=== PATIENT | female | born 1985 | race Hispanic/Latino ===

== ENCOUNTER → 2018-11-06 | Outpatient (REF) | payer OTHER ==
[~2018-11-06] MED LIST: BIOT1CAP2 PO; ETHINYL ESTRADIOL PO; MELA1LIQ2 PO; MULTCAP PO; NORGESTIMATE PO; OCRE300I IV; SUPECAP7 PO; THERCAP7 PO; VITA100T59 PO
[2018-11-06 13:42] LABS: BASO % 0.6 % (0.0-1.0); EOS # 0.2 10^3/uL (0.0-0.50); EOS % 3.2 % (0.0-3.0); HEMATOCRIT 39.4 % (36.0-47.0); HEMOGLOBIN 13.2 g/dl (12.0-15.5); LYMPH % 16.7 % (24.0-44.0); MEAN CORPUSCULAR HEMOGLOBIN 32.4 pg (27.0-33.0); MEAN CORPUSCULAR HGB CONC 33.5 g/dl (32.0-36.5); MEAN CORPUSCULAR VOLUME 96.8 fl (80.0-96.0); MONO # 0.3 10^3/uL (0.0-0.8); MONO % 4.5 % (0.0-5.0); NEUTROPHILS # 4.7 10^3/uL (1.8-7.7); NEUTROPHILS % 74.7 % (36.0-66.0); PLATELET COUNT, AUTOMATED 214 10^3/uL (150-450); RED BLOOD COUNT 4.07 10^6/uL (4.00-5.40); WHITE BLOOD COUNT 6.2 10^3/uL (4.0-10.0)
[2018-11-06 14:23] LABS: ALBUMIN 3.7 GM/DL (3.2-5.2); ALT/SGPT 30 U/L (12-78); BILIRUBIN,TOTAL 0.3 MG/DL (0.2-1.0); BLOOD UREA NITROGEN 10 MG/DL (7-18); CALCIUM LEVEL 8.7 MG/DL (8.5-10.1); CARBON DIOXIDE LEVEL 25 MEQ/L (21-32); CHLORIDE LEVEL 107 MEQ/L (98-107); CREATININE FOR GFR 0.77 MG/DL (0.55-1.30); GLOMERULAR FILTRATION RATE > 60.0 (>60); GLUCOSE, FASTING 93 MG/DL (70-100); POTASSIUM SERUM 3.8 MEQ/L (3.5-5.1); SODIUM LEVEL 141 MEQ/L (136-145); TOTAL 25(OH) VITAMIN D 34.8 NG/ML (30.0-100.0); TOTAL PROTEIN 7.1 GM/DL (6.4-8.2)
== END ==
LOC: M LABNEURO 10:33
PROVIDERS: ATTEND Psychiatry & Neurology Neurology
DX: G35 Multiple sclerosis (principal); E55.9 Vitamin D deficiency, unspecified

== ENCOUNTER 2018-11-12 08:10 | Outpatient (CLI) | payer OTHER ==
[2018-11-12] VITALS (8 sets, daily range): BP systolic 96–119; BP diastolic 46–66
[~2018-11-12] VITALS: Ht 154.9 cm; Wt 67.2 kg
[2018-11-12] MEDS ORDERED: diphenhydrAMINE 25 MG CAP PO ONE (08:30)
[2018-11-12] MEDS ORDERED: methylPREDNISolone INJ 125 MG/2 ML VIAL (J2930) IV ONE (08:30)
[2018-11-12] MEDS ORDERED: ACETAMINOPHEN TAB 650MG DOSE (2X325MG) PO ONE (08:30)
[2018-11-12] MEDS ORDERED: OCRELIZUMAB 600 MG in NS 500 ML IV ONE (08:30)
[2018-11-12] MEDS ORDERED: 0.22 MICRON FILTER (METHACHOLINE/OCREVUS) XX ONE (08:30)
[2018-11-12] MEDS ORDERED: VITA100T59 PO (08:33)
[2018-11-12] MEDS ORDERED: BIOT1CAP2 PO (08:33)
[2018-11-12] MEDS ORDERED: MULTCAP PO (08:35)
[2018-11-12] MEDS ORDERED: SUPECAP7 PO (08:38)
[2018-11-12] MEDS ORDERED: THERCAP7 PO (08:38)
[2018-11-12] MEDS ORDERED: NORGESTIMATE PO (08:39)
[2018-11-12] MEDS ORDERED: ETHINYL ESTRADIOL PO (08:39)
[2018-11-12] MEDS ORDERED: MELA1LIQ2 PO (08:40)
[2018-11-12] MEDS ORDERED: OCRE300I IV (08:41)
== END 2018-11-12 14:15 | disposition home or self-care (01) ==
LOC: M INFU 08:10
PROVIDERS: ATTEND Psychiatry & Neurology Neurology
DX: G35 Multiple sclerosis (principal)
CPT/HCPCS: 96365; 96366; 96375; J2350; J2930

== ENCOUNTER → 2018-11-19 | Outpatient (CLI) | payer OTHER ==
--- NOTE | 2018-11-21 11:59 | REP ---
DIGITAL DIAGNOSTIC BILATERAL MAMMOGRAPHY WITH CAD: HISTORY: 32-year-old woman status post benign lumpectomy, cystic breast disease. Currently on a multiple sclerosis therapy which increases risk of breast cancer. Family history is not positive for breast cancer. Comparison mammography has been retrieved from [facility] dated August 18, 2015. MAMMOGRAPHIC FINDINGS: There is a marker clip from previous needle biopsy in the upper outer quadrant of the right breast. There is a surgical clip in the upper outer quadrant left breast from previous excisional biopsy. There is some post biopsy fibrosis in the upper outer quadrant of the left breast. This is less prominent than on the 08/18/2015 prior study. Heterogeneously dense breast parenchyma is observed as before although there has been some involutional change. No neodensity is seen. No microcalcification is observed. No architectural distortion is seen. IMPRESSION: BIRADS 2: BI-RADS/ACR category 2 mammogram. Benign Findings. Repeat screening mammography suggested in 1 year. This mammogram was interpreted with the aid of an FDA-approved computer-aided detection system. The patient states she had a clinical breast exam in April 2018. The patient letter being requested is M1. Electronically Signed by Carlos Martinez MD 11/21/2018 12:09 P
== END ==
LOC: M RAD 14:21
PROVIDERS: ATTEND Psychiatry & Neurology Neurology
DX: Z12.31 Encounter for screening mammogram for malignant neoplasm of breast (principal); G35 Multiple sclerosis

== ENCOUNTER → 2019-04-16 | Outpatient (REF) | payer OTHER | LOC: M LABNEURO 17:50 | PROVIDERS: ATTEND Psychiatry & Neurology Neurology | DX: E55.9 Vitamin D deficiency, unspecified (principal) ==

== ENCOUNTER 2019-05-11 07:45 | Outpatient (CLI) | payer OTHER ==
[2019-05-11] VITALS (8 sets, daily range): BP systolic 90–126; BP diastolic 47–68
[~2019-05-11] VITALS: Ht 154.9 cm; Wt 67.2 kg
[2019-05-11] MEDS ORDERED: diphenhydrAMINE 25 MG CAP PO ONE (08:00)
[2019-05-11] MEDS ORDERED: methylPREDNISolone INJ 125 MG/2 ML VIAL (J2930) IV ONE (08:00)
[2019-05-11] MEDS ORDERED: ACETAMINOPHEN TAB 650MG DOSE (2X325MG) PO ONE (08:00)
[2019-05-11] MEDS ORDERED: OCRELIZUMAB 600 MG in NS 500 ML IV ONE (09:00)
== END 2019-05-11 13:15 | disposition home or self-care (01) ==
LOC: M INFU 07:45
PROVIDERS: ATTEND Psychiatry & Neurology Neurology
DX: G35 Multiple sclerosis (principal)
CPT/HCPCS: 96365; 96366; 96375; J2350; J2930

== ENCOUNTER → 2019-05-26 | Outpatient (CLI) | payer OTHER ==
--- NOTE | 2019-05-26 14:22 | REPMRS ---
Patient History The patient states she has not had a clinical breast exam in over a year. No known family history of cancer. Taking hormonal contraceptives for 12 years 6 months. Patient was diagnosed with Multiple Sclerosis 01/2010. Patient states she has had a left breast lumpectomy 12/2015 that was negative Diagnostic Bilateral Mammo: May 26, 2019 - Exam #: [id number] Bilateral CC and MLO view(s) were taken. Technologist: Elizabeth Diaz, Technologist Prior study comparison: November 19, 2018, digital mammo diagnostic bilateral, performed at [facility]. April 14, 2018, bilateral digital woman screen mammo, performed at [facility]. March 15, 2017, bilateral digital woman screen mammo, performed at [facility]. FINDINGS: The breast tissue is heterogeneously dense. This may lower the sensitivity of mammography. There is a surgical clip projecting in the upper outer quadrant of the left breast and the needle biopsy marker clip is seen projecting in the upper outer quadrant of the right breast. These findings are unchanged. There is a moderate amount of heterogeneously dense fibroglandular tissue which is fairly symmetric. There is no interval development of dominant mass, architectural distortion, or grouped microcalcification typical of malignancy. There has been no change in the appearance of the mammogram from the prior studies. Assessment: BI-RADS/ACR category 2 mammogram. Benign Findings. Recommendation Routine screening mammogram of both breasts in 1 year (for women over age 40). This patient's Lifetime Breast Cancer RIsk is estimated at 15.1 %. This mammogram was interpreted with the aid of an FDA-approved computer-aided dectection system. Electronically Signed By: Shorty Martinez MD 05/26/19 [id number]
== END ==
LOC: M WHC 13:44
PROVIDERS: ATTEND Emergency Medicine
DX: Z12.31 Encounter for screening mammogram for malignant neoplasm of breast (principal)

== ENCOUNTER 2019-11-09 08:00 | Outpatient (CLI) | payer OTHER ==
[2019-11-09] MEDS ORDERED: methylPREDNISolone 125MG 2ML VIAL ONE (08:01)
[2019-11-09] MEDS ORDERED: diphenhydrAMINE 25MG CAP ONE (08:01)
[2019-11-09] MEDS ORDERED: OCRELIZUMAB 300MG 10ML (OCREVUS) ONE (08:01)
[2019-11-09] MEDS ORDERED: ACETAMINOPHEN TAB 650MG DOSE (2X325MG) ONE (08:01)
[2019-11-09] MEDS ORDERED: methylPREDNISolone 125MG 2ML VIAL As Ordered ONE (08:04)
[2019-11-09] MEDS ORDERED: diphenhydrAMINE 25MG CAP As Ordered ONE (08:04)
[2019-11-09] MEDS ORDERED: ACETAMINOPHEN TAB 650MG DOSE (2X325MG) As Ordered ONE (08:05)
== END 2019-11-09 12:30 | disposition home or self-care (01) ==
LOC: M INFU 08:00
PROVIDERS: ATTEND Psychiatry & Neurology Neurology
DX: G35 Multiple sclerosis (principal)
CPT/HCPCS: 96375; 96413; 96415; J2350; J2930

== ENCOUNTER → 2019-11-24 | Outpatient (CLI) | payer OTHER ==
--- NOTE | 2019-12-09 14:40 | REPMRS ---
Patient History Patient is nulliparous. No known family history of cancer. Taking hormonal contraceptives for 12 years 6 months. Indicated problem(s): bilateral other indicated problem. 6 month follow up due to MS medications. Diagnostic Bilateral Mammo: November 24, 2019 - Exam #: [id number] Bilateral CC and MLO view(s) were taken. Technologist: Rosa M Camejo, Technologist Prior study comparison: May 26, 2019, diagnostic bilateral mammo, performed at [facility]. November 19, 2018, digital mammo diagnostic bilateral performed at [facility]. April 14, 2018, bilateral digital woman screen mammo, performed at [facility]. March 15, 2017, bilateral digital woman screen mammo, performed at [facility]. FINDINGS: The breast tissue is heterogeneously dense. This may lower the sensitivity of mammography. The Volpara volumetric breast density category is: C. There is a needle biopsy marker clip in the right breast. There is a moderate amount of heterogeneously dense fibroglandular tissue which is fairly symmetric. There is no interval development of dominant mass, architectural distortion, or grouped microcalcification typical of malignancy. There has been no change in the appearance of the mammogram from the prior studies. 3-D tomosynthesis shows no additional findings. Assessment: BI-RADS/ACR category 2 mammogram. Benign Findings. Recommendation Routine screening mammogram of both breasts in 1 year (for women over age 40). This patient's Lifetime Breast Cancer RIsk is estimated at 15.1 %. This mammogram was interpreted with the aid of an FDA-approved computer-aided dectection system. Electronically Signed By: Shorty Martinez MD 12/09/19 [id number]
== END ==
LOC: M WHC 17:22
PROVIDERS: ATTEND Nurse Practitioner Primary Care
DX: Z12.31 Encounter for screening mammogram for malignant neoplasm of breast (principal)

== ENCOUNTER 2020-05-09 07:49 | Outpatient (CLI) | payer OTHER ==
[2020-05-09] VITALS (8 sets, daily range): BP systolic 99–112; BP diastolic 51–62
[~2020-05-09] VITALS: Ht 154.9 cm; Wt 63.6 kg
[2020-05-09] MEDS ORDERED: methylPREDNISolone 125MG 2ML VIAL IV ONE ×2 (08:00→08:45)
[2020-05-09] MEDS ORDERED: OCRELIZUMAB 600 MG in NS 500 ML IV ONE (08:00)
[2020-05-09] MEDS ORDERED: diphenhydrAMINE 25MG CAP PO ONE ×2 (08:00→08:45)
[2020-05-09] MEDS ORDERED: ACETAMINOPHEN TAB 650MG DOSE (2X325MG) PO ONE ×2 (08:00→08:45)
== END 2020-05-09 13:25 | disposition home or self-care (01) ==
LOC: M INFU 07:49
PROVIDERS: ATTEND Psychiatry & Neurology Neurology
DX: G35 Multiple sclerosis (principal)
CPT/HCPCS: 96365; 96366; 96375; J2350; J2930

== ENCOUNTER → 2020-05-16 | Outpatient (CLI) | payer OTHER ==
--- NOTE | 2020-05-16 13:38 | REPMRS ---
Patient History The patient states she has not had a clinical breast exam in over a year. Patient is nulliparous. No known family history of cancer. Benign lumpectomy of the left breast, 2016. Taking hormonal contraceptives for 13 years. Diagnostic Bilateral Mammo: May 16, 2020 - Exam #: [id number] Bilateral CC and MLO view(s) were taken. Technologist: Carolyn Ballard, Technologist Prior study comparison: November 24, 2019, diagnostic bilateral mammo performed at [facility]. May 26, 2019, diagnostic bilateral mammo performed at [facility]. November 19, 2018, digital mammo diagnostic bilateral, performed at [facility]. FINDINGS: The breast tissue is heterogeneously dense. This may lower the sensitivity of mammography. The Volpara volumetric breast density category is: C. There is a needle biopsy marker clip in the upper outer quadrant on the right and a surgical clip is noted in the upper outer quadrant on the left unchanged. There is a moderate amount of heterogeneously dense fibroglandular tissue which is fairly symmetric. There is no interval development of dominant mass, architectural distortion, or grouped microcalcification typical of malignancy. There has been no change in the appearance of the mammogram from the prior studies. 3-D tomosynthesis shows no additional findings. Assessment: BI-RADS/ACR category 2 mammogram. Benign Findings. Recommendation Routine screening mammogram of both breasts in 1 year (for women over age 40). This patient's [facility] Lifetime Breast Cancer RIsk is estimated at 15.1 %. This mammogram was interpreted with the aid of an FDA-approved computer-aided dectection system. Electronically Signed By: Shorty Martinez MD 05/16/20 [id number]
== END ==
LOC: M WHC 12:53
PROVIDERS: ATTEND Emergency Medicine
DX: Z12.31 Encounter for screening mammogram for malignant neoplasm of breast (principal)
CPT/HCPCS: 77066; G0279

== ENCOUNTER → 2020-07-28 | Outpatient (REF) | payer OTHER ==
[2020-07-28 17:15] LABS: APPEARANCE, URINE CLEAR (CLEAR); BACTERIA, URINE AUTO NEGATIVE (NEGATIVE); BILIRUBIN, URINE AUTO NEGATIVE (NEGATIVE); BLOOD, URINE BLOOD NEGATIVE (NEGATIVE); COLOR, URINE YELLOW (YELLOW); GLUCOSE, URINE (UA) AUTO NEGATIVE (NEGATIVE); KETONE, URINE AUTO NEGATIVE (NEGATIVE); LEUKOCYTE ESTERASE, URINE AUTO NEGATIVE (NEGATIVE); NITRITE, URINE AUTO NEGATIVE (NEGATIVE); PROTEIN, URINE AUTO NEGATIVE (NEGATIVE); RBC, URINE AUTO 0 /HPF (0-3); SPECIFIC GRAVITY URINE AUTO 1.012 (1.002-1.035); SQUAMOUS EPITHELIAL CELL UR AU 0 /HPF (0-6); UROBILINOGEN, URINE AUTO 0.2 mg/dL (0.0-2.0); WBC, URINE AUTO 0 /HPF (0-3)
[2020-07-28 17:28] LABS: BASO # 0.1 10^3/uL (0.0-0.2); BASO % 0.8 % (0.0-1.0); EOS # 0.2 10^3/uL (0.0-0.5); EOS % 2.5 % (0.0-3.0); HEMATOCRIT 41.9 % (36.0-47.0); HEMOGLOBIN 13.9 g/dl (12.0-15.5); LYMPH % 21.3 % (24.0-44.0); MEAN CORPUSCULAR HEMOGLOBIN 32.4 pg (27.0-33.0); MEAN CORPUSCULAR HGB CONC 33.2 g/dl (32.0-36.5); MEAN CORPUSCULAR VOLUME 97.7 fl (80.0-96.0); MONO # 0.6 10^3/uL (0.0-0.8); MONO % 6.7 % (2.0-8.0); NEUTROPHILS # 6.3 10^3/uL (1.5-8.5); NEUTROPHILS % 68.4 % (36.0-66.0); PLATELET COUNT, AUTOMATED 246 10^3/uL (150-450); RED BLOOD COUNT 4.29 10^6/uL (4.00-5.40); WHITE BLOOD COUNT 9.2 10^3/uL (4.0-10.0)
[2020-07-28 17:45] LABS: CREATININE,RANDOM URINE 66.1 MG/DL; TOTAL PROTEIN,RANDOM URINE 6.1 MG/DL (0.0-12.0)
[2020-07-28 17:49] LABS: ALT/SGPT 24 U/L (12-78); BILIRUBIN,TOTAL 0.3 MG/DL (0.2-1.0); BLOOD UREA NITROGEN 16 MG/DL (7-18); CALCIUM LEVEL 9.1 MG/DL (8.5-10.1); CARBON DIOXIDE LEVEL 31 MEQ/L (21-32); CHLORIDE LEVEL 106 MEQ/L (98-107); COMPLEMENT C3 92 MG/DL (90-180); COMPLEMENT C4 21 MG/DL (10-40); CPK CREATINE PHOSPHOKINASE 88 U/L (26-192); CREATININE FOR GFR 0.72 MG/DL (0.55-1.30); GLOMERULAR FILTRATION RATE > 60.0 (>60); GLUCOSE, FASTING 93 MG/DL (70-100); LDH LACTATE DEHYDROGENASE 152 U/L (84-246); POTASSIUM SERUM 3.7 MEQ/L (3.5-5.1); SODIUM LEVEL 139 MEQ/L (136-145); TOTAL PROTEIN 7.3 GM/DL (6.4-8.2)
[2020-07-28 18:26] LABS: ERYTHROCYTE SEDIMENTATION RATE 2 mm/hr (0-20)
[2020-08-02 12:08] LABS: ALDOLASE 4.1 U/L (3.3-10.3); ANTI CENTROMERE ANTIBODY <0.2 AI (0.0-0.9); ANTI DS-DNA AB Negative (Negative); ANTI SCLERODERMA ANTIBODIES <0.2 AI (0.0-0.9); RNP ANTIBODY < 0.2 AI (0.0-0.9); SMITHS ANTIBODY < 0.2 AI (0.0-0.9); SSA SJOGRENS A <0.2 AI (0.0-0.9); SSB SJOGRENS B <0.2 AI (0.0-0.9)
== END ==
LOC: M SFHCRHEU 15:40
PROVIDERS: ATTEND Internal Medicine Rheumatology
DX: R76.8 Other specified abnormal immunological findings in serum (principal)
CPT/HCPCS: 80053; 81001; 82085; 82550; 82570; 83615; 84156; 85025; 85652; 86140; 86160; 86225; 86235; 86255; G0463

== ENCOUNTER → 2020-11-23 | Outpatient (CLI) | payer OTHER ==
--- NOTE | 2020-11-23 14:21 | REP ---
INDICATION: GORAN DIAG MAMMO/6 MO F/U DUE TO BREAST CHGS. COMPARISON: Multiple the latest 05/16/2020 a category 2 mammogram TECHNIQUE: Digital screening mammography was carried out bilaterally in the CC and MLO projections using 2D and 3D modalities and compared to the prior exams. By history, the patient has no complaints of a palpable breast abnormality or other significant breast complaints. FINDINGS: The breasts are unchanged in size and shape. Once again, dense heterogenous fibroglandular elements are seen bilaterally in a stable appearing pattern but to such a degree that the sensitivity of the mammogram in detecting cancer is decreased. There are no ezequiel soft tissue densities or spiculated masses. There is postprocedural change seen in the upper outer quadrant of the left breast status quo. There are no suspicious calcifications. There is no skin thickening or nipple retraction. The Volpara volumetric breast density pattern is C. IMPRESSION: BIRADS/ACR category 2 benign findings. Stable mammogram. There is no evidence of malignant alteration of the breasts. Due to the patient's breast density score of C consider bilateral whole breast screening ultrasonography.. This patient's Tyrer-Cuzick lifetime breast cancer risk assessment score is 15.1%. This mammogram was interpreted with the aid of an FDA-approved computer-aided detection system. The patient states she had a clinical breast exam in August 2020. The patient letter being requested is M1. RECOMMENDATION: Repeat screening mammography recommended 1 year (for women over 40). <Electronically signed by Yassine Montague > 11/23/20 [id number]
== END ==
LOC: M WHC 13:21
PROVIDERS: ATTEND Emergency Medicine
DX: Z12.31 Encounter for screening mammogram for malignant neoplasm of breast (principal); G35 Multiple sclerosis; Z79.899 Other long term (current) drug therapy
CPT/HCPCS: 77066; G0279

== ENCOUNTER 2020-11-24 08:31 | Outpatient (CLI) | payer OTHER ==
[~2020-11-24] VITALS: Ht 154.9 cm; Wt 63.0 kg
[2020-11-24] VITALS (7 sets, daily range): BP systolic 105–135; BP diastolic 52–61
[~2020-11-24 08:31] MED LIST changes: +ACETAMINOPHEN TAB 650MG DOSE (2X325MG) PO ONE; +OCRELIZUMAB 600 MG in NS 500 ML IV ONE; +diphenhydrAMINE 25MG CAP PO ONE; +methylPREDNISolone 125MG 2ML VIAL IV ONE
== END 2020-11-24 13:25 | disposition home or self-care (01) ==
LOC: M INFU 08:31
PROVIDERS: ATTEND Psychiatry & Neurology Neurology
DX: G35 Multiple sclerosis (principal)
CPT/HCPCS: 96365; 96366; 96375; J2350; J2930

== ENCOUNTER 2021-05-30 09:54 | Outpatient (CLI) | payer OTHER ==
[2021-05-30] VITALS (7 sets, daily range): BP systolic 104–114; BP diastolic 55–68
[~2021-05-30] VITALS: Ht 154.9 cm; Wt 63.0 kg
[~2021-05-30 09:54] MED LIST changes: -ACETAMINOPHEN TAB 650MG DOSE (2X325MG) PO ONE; -OCRELIZUMAB 600 MG in NS 500 ML IV ONE; -diphenhydrAMINE 25MG CAP PO ONE; -methylPREDNISolone 125MG 2ML VIAL IV ONE
[2021-05-30] MEDS ORDERED: diphenhydrAMINE 25MG CAP PO ONE (10:00)
[2021-05-30] MEDS ORDERED: methylPREDNISolone 125MG 2ML VIAL IV ONE (10:00)
[2021-05-30] MEDS ORDERED: OCRELIZUMAB 600 MG in NS 500 ML IV ONE (10:00)
[2021-05-30] MEDS ORDERED: ACETAMINOPHEN TAB 650MG DOSE (2X325MG) PO ONE (10:00)
== END 2021-05-30 14:45 | disposition home or self-care (01) ==
LOC: M INFU 09:54
PROVIDERS: ATTEND Psychiatry & Neurology Neurology
DX: G35 Multiple sclerosis (principal)
CPT/HCPCS: 96365; 96366; 96375; 96413; 96415; J2350; J2930

== ENCOUNTER → 2021-06-16 | Outpatient (CLI) | payer OTHER | LOC: M WHC 07:14 | PROVIDERS: ATTEND Nurse Practitioner Primary Care | DX: Z12.31 Encounter for screening mammogram for malignant neoplasm of breast (principal) | CPT/HCPCS: 77066; G0279 ==